=== PATIENT | female | born 1945 | race Caucasian/White ===

== ENCOUNTER → 2016-12-19 | Outpatient (CLI) | payer OTHER, MEDICARE ==
--- NOTE | 2016-12-19 16:32 | CPEKG ---
Heart Rate: 74 RR Interval: 811 P-R Interval: 140 QRSD Interval: 82 QT Interval: 392 QTC Interval: 435 P [place]: 78 QRS [place]: 82 T Wave [place]: 62 EKG Severity - NORMAL ECG - EKG Impression: SINUS RHYTHM EKG Impression: AGREE WITH ABOVE Electronically Signed By: Gerardo Billings 20-Dec-2016 07:00:49
== END ==
LOC: FCP 16:14
DX: Z01.818 Encounter for other preprocedural examination (principal)